=== PATIENT | male | born 1970 | race Caucasian/White ===

== ENCOUNTER 2016-05-07 06:26 | Day surgery (SDC) | payer OTHER ==
[~2016-05-07] VITALS: Ht 177.8 cm; Wt 95.5 kg
[~2016-05-07 06:26] MED LIST: CEFAZOLIN 2000 MG/60 ML D5W 60 ML IV SCH; CEFAZOLIN IV 2,000 MG/60 ML D5W IV SCH; LACTATED RINGER'S 1000ML 1,000 ML IV SCH; SUMA100T16 PO; SUMA6KIT INJ; ZOLP5TAB6 PO
[2016-05-07 06:40] VITALS: BP 152/91; PULSE 90; TEMP 37; O2SAT 98; Ht 177.8 cm; Wt 95.5 kg
[2016-05-07] MEDS ORDERED: MIDAZOLAM HCL 1 MG/ML 2ML VIAL ONE (07:23)
[2016-05-07] MEDS ORDERED: FENTANYL CITRATE INJ 50 MCG/1 ML 2 ML VIAL ONE ×2 (07:23→09:14)
[2016-05-07] MEDS ORDERED: LACTATED RINGER'S 1000ML 1,000 ML IV PRN (07:51)
[2016-05-07] MEDS ORDERED: DiphenhydrAMINE HCL 50 MG/ML VIAL IV PRN (08:00)
[2016-05-07] MEDS ORDERED: ONDANSETRON INJ 2 MG/ML 2 ML VIAL IV PRN (08:00)
[2016-05-07] MEDS ORDERED: KETOROLAC TROMETHAMINE 30 MG/ML VIAL IV. PRN (08:00)
[2016-05-07] MEDS ORDERED: METOCLOPRAMIDE HCL INJ 5 MG/ML 2 ML VIAL IV PRN (08:00)
[2016-05-07] MEDS ORDERED: HYDROmorphone INJ 1 MG/ML SYR IV PRN (08:00)
--- NOTE | 2016-05-07 08:29 | History & Physical Bridge Note ---
H&P Re-Evaluation Bridge Note: I have examined the patient, reviewed the History & Physical and in the interval since the performance of the History & Physical I have noted the following changes of clinical significance: No changes noted
[2016-05-07] MEDS ORDERED: LIDOCAINE HCL 1% 20 ML VIAL ONE (08:33)
[2016-05-07] MEDS ORDERED: BUPIVACAINE 0.5 % 5 MG/1 ML MPF 30ML VIAL ONE (08:33)
[2016-05-07] MEDS ORDERED: LARYING-O-JET KIT (LTA) EXT ONE ×2 (09:43)
[2016-05-07] MEDS ORDERED: NEOSTIGMINE METHYLSULFATE 1 MG/ML 10ML VIAL ONE (09:43)
[2016-05-07] MEDS ORDERED: ONDANSETRON INJ 2 MG/ML 2 ML VIAL ONE (09:43)
[2016-05-07] MEDS ORDERED: ROCURONIUM BROMIDE 10 MG/ML 5 ML VIAL ONE (09:43)
[2016-05-07] MEDS ORDERED: PROPOFOL IV EMULSION 10 MG/ML 20 ML VIAL IV ONE (09:43)
[2016-05-07] MEDS ORDERED: DEXAMETHASONE SOD INJ 4 MG/ML VIAL ONE (09:43)
[2016-05-07] MEDS ORDERED: GLYCOPYRROLATE INJ 0.2 MG/ML VIAL ONE (09:43)
[2016-05-07] MEDS ORDERED: LIDOCAINE HCL 2% 2 ML VIAL (20MG/ML) ONE (09:43)
[2016-05-07] MEDS ORDERED: BACITRACIN OINT 15 GM TUBE ONE (09:47)
--- NOTE | 2016-05-07 10:03 | [facility] Post Operative Brief Note ---
Immediate Operative Summary Operative Date May 07, 2016. Pre-Operative Diagnosis umbilical hernia Post-Operative Diagnosis umbilical hernia Procedure(s) Performed open repair umbilical hernia with mesh Surgeon Marilee Bess [employer] Driver Surgeon(s) clinical research tech Estimated Blood Loss 5 ml Findings 2x2cm umbilical hernia Specimens none Drains none Anesthesia general Complication(s) None Disposition Recovery Room / PACU
[2016-05-07] MEDS ORDERED: SODIUM CHLORIDE 0.9% 1000ML 1,000 ML IV SCH (10:04)
[2016-05-07] MEDS ORDERED: OXYC-57 PO (10:08)
--- NOTE | 2016-05-07 10:11 | Discharge Instructions ---
Discharge Instructions Date of Service May 07, 2016. Visit Reason for Visit: Incarcerated Umbilical Hernia Discharge Discharge Diagnosis / Problem: S/P open repair umbilical hernia with mesh Discharge Goals Goal(s): Decrease discomfort, Improve function Activity Recommendations Activity Limitations: per Instructions/Follow-up section Lifting Limitations: no more than 25 pounds Exercise/Sports Limitations: gradually increase as tolerated May Resume Sexual Activity: when tolerated Shower/Bathe: may shower/bathe in 3 days Driving or Machine Use: resume 3 days after discharge Anesthesia . Post Anesthesia Instructions: If you have had General Anesthesia or IV Sedation: * Do not drive today. * Resume driving when surgeon permits. * Do not make important decisions or sign legal documents today. * Call surgeon for: 1. Temperature elevations greater than 101 degrees F. 2. Uncontrollable pain. 3. Excessive bleeding. 4. Persistent nausea and vomiting. 5. Medication intolerance (nausea, vomiting or rash). * For nausea and vomiting use only clear liquids such as: tea, soda, bouillon until nausea subsides, then gradually increase diet as tolerated. * If you have any concerns or questions, call your surgeon's office. If physician is unavailable and it is an emergency, call 911 or go to the nearest emergency room. . Instructions / Follow-Up Instructions / Follow-Up keep the dressing on for 4 days, he can take a shower on 05/11/2016. no driving while taking pain medicine. follow up on 05/27/2016. [phone] Diet Recommendations Recommended Home Diet: resume previous diet Procedures Procedures Performed: open repair umbilical hernia with mesh Pending Studies Studies pending at discharge: no Medical Emergencies . Who to Call and When: Medical Emergencies: If at any time you feel your situation is an emergency, please call 911 immediately. . Non-Emergent Contact Non-Emergency issues call your: Surgeon Call Non-Emergent contact if: you have a fever, temperature is above 100.5, your pain is not controlled, your pain is worsening, wound has increased drainage, wound has increased redness . . "Provider Documentation" section prepared by Marilee Bess.
[2016-05-07] MEDS ORDERED: MoRPHine SULFATE 4 MG/ML 1 ML CARP\\VIAL IV PRN (10:15)
[2016-05-07] MEDS ORDERED: SODIUM CHLORIDE 0.45% 1000ML 1,000 ML IV SCH (10:15)
[2016-05-07] MEDS ORDERED: OXYCODONE/ACETAMINOPHEN 5-325 TAB PO PRN (10:15)
[2016-05-07] MEDS: FENTANYL CITRATE INJ 50 MCG/1 ML 2 ML VIAL IV PRN ×2 (10:28→10:34)
--- NOTE | 2016-05-07 10:46 | Anesthesiology Progress Note ---
Anesthesia Post Op Note Date & Time May 07, 2016 at 10:46 Vital Signs Pain Intensity: 4 Vital Signs Past 12 Hours Date Time Temp Pulse Resp B/P Pulse Ox O2 Delivery O2 Flow Rate FiO2 05/07/16 10:35 67 12 138/94 97 Room Air 05/07/16 10:25 70 12 141/89 100 Mask 10 05/07/16 10:15 78 16 148/93 99 Mask 10 05/07/16 10:09 36.3 88 16 127/87 98 Mask 10 05/07/16 06:40 37 90 18 152/91 98 Room Air Notes Mental Status: alert / awake / arousable, participated in evaluation Pt Amnestic to Procedure: Yes Nausea / Vomiting: adequately controlled Pain: adequately controlled Airway Patency, RR, SpO2: stable & adequate BP & HR: stable & adequate Hydration State: stable & adequate Anesthetic Complications: no major complications apparent
[2016-05-07 11:00] VITALS: BP 143/96; PULSE 72; TEMP 36.6; O2SAT 95
[2016-05-07 11:32] VITALS: BP 142/98; PULSE 72; TEMP 36.6; O2SAT 95
--- NOTE | 2016-05-07 11:41 | OPERATIVE REPORT ---
DATE OF OPERATION: 05/07/2016 PREOPERATIVE DIAGNOSIS: Umbilical hernia. POSTOPERATIVE DIAGNOSIS: Same. PROCEDURE: Open repair umbilical hernia with mesh. SURGEON: Dr. Marilee Bess. ANESTHESIA: General. ESTIMATED BLOOD LOSS: About 5 mL. IV FLUIDS: 1000 mL. FINDINGS: Umbilical hernia size about 2 x 2 cm. COMPLICATIONS: None. INDICATIONS FOR THE PROCEDURE: This is a 46-year-old gentleman who presented symptomatic umbilical hernia. The patient will be required to do open repair of umbilical hernia, possible mesh. I did talk to the patient about the benefit and risk alternate procedure. I indicated the risks may include but not limited such as bleeding, infection, hernia recurrence, may need more procedure even , injury to bowel. The patient understands and he signed informed consent and I answered all questions. OPERATION AND FINDINGS: DETAILS OF PROCEDURE: We brought the patient to the OR, put the patient in the supine position. The patient received SCD on bilateral legs to prevent DVT. Also, the patient received 2 grams Ancef IV for prophylactic antibiotic. The patient received general anesthesia without difficulty. The abdomen was prepped and draped in routine sterile fashion. After a timeout, I injected local anesthesia by using 1% lidocaine mixed with 0.5% Marcaine around the umbilical area. Then I made a small incision just below the umbilical opened subcutaneous layer and mobilized the umbilical and then we found the patient had 2 x 2 cm hernia. The hernia sac contained omental fat tissue and we completely removed the omental fat tissue back to the abdominal cavity. Then I chose the 6.4 x 6.4 cm mesh to repair the hernia. I used a #1 Ethibond to fix the mesh around the fascial layer about 6 stitch and we tied the suture and rechecked the mesh stayed there nicely. Hemostasis was obtained. Then I used 2-0 Vicryl to closed the subcutaneous layer by using 2-0 Vicryl continuous running. I then closed skin by using 4-0 Vicryl. We put the dressing on. The patient tolerated the procedure well. All the instrument, needle and sponge count correct x2 at the end of case. The patient transferred to recovery room in stable condition. After the procedure, I did talk to the patient and patient's family member about OR finding and procedure. Also, I gave them the postop care instruction they understand. I will follow up the patient in 2 weeks. I attest to the content of the Intraoperative Record and any orders documented therein. Any exceptions are noted below. MTDD
[2016-05-07 12:00] VITALS: BP 139/95; PULSE 72; TEMP 36.8; O2SAT 95
[2016-05-07 13:00] VITALS: BP 132/93; PULSE 85; TEMP 36.8; O2SAT 96
[2016-05-07 14:00] VITALS: BP 139/93; PULSE 85; TEMP 36.8; O2SAT 96
== END 2016-05-07 14:30 | disposition home or self-care (01) ==
LOC: C.ACU 06:26
PROVIDERS: ATTEND Surgery
DX: K42.9 Umbilical hernia without obstruction or gangrene (principal); R10.33 Periumbilical pain; Z87.891 Personal history of nicotine dependence